=== PATIENT | female | born 1955 | race African-American/Black ===

== ENCOUNTER 2023-12-11 23:46 | Inpatient (IN) | payer BC, MEDICAID ==
[~2023-12-11] VITALS: Ht 161.3 cm; Wt 48.5 kg
[~2023-12-11 23:46] MED LIST: ALBU18HF2 IH; ATOR20TA PO; FLUT1DIS3 INH; FURO-151 MT; IPRA3AMP9 NEB; METFORMIN; P20 MT; POTA-202 MT
[2023-12-11 23:50] VITALS: RESP 18
[2023-12-12] VITALS (7 sets, daily range): RESP 16–31
[2023-12-12] MEDS: MAGNESIUM 2 G PREMIX 50 ML IV ONE (00:30)
[2023-12-12 00:31] LABS: BASOPHILS % 0.7 % (0.0-2.0); EOSINOPHILS % 5.7 % (0.0-5.0); HEMATOCRIT. 31.3 % (36.0-48.0); HEMOGLOBIN. 9.6 g/dL (12.0-16.0); LYMPHOCYTES % 41.6 % (20.0-50.0); MEAN CORPUSCULAR HGB CONC 30.5 g/dL (31.0-37.0); MEAN CORPUSCULAR VOLUME 88.6 fL (81.0-99.0); MEAN PLATELET VOLUME 8.6 fl (7.4-10.4); MONOCYTES % 5.1 % (2.0-8.0); NEUTROPHILS % 46.9 % (40.0-76.0); PLATELET 419 x1000/uL (130-400); RED BLOOD CELL COUNT 3.54 mill/uL (4.2-5.4); RED CELL DISTRIBUTION WIDTH 17.8 % (11.6-14.6); WHITE BLOOD COUNT 10.8 x1000/uL (4.5-11.0)
[2023-12-12] MEDS: ONDANSETRON HCL 4MG/2ML INJ IV STA (00:31)
[2023-12-12] MEDS: METHYLPREDNISOLONE SOD SUCC 125MG/2ML (ACT-O-VIAL) IV STA (00:31)
[2023-12-12 00:45] LABS: ALANINE AMINOTRANSFERASE 40 IU/L (10-49); ALBUMIN 3.8 g/dL (3.2-4.8); ASPARTATE AMINOTRANSFERASE 95 IU/L (<34); BILIRUBIN TOTAL 0.2 mg/dL (0.1-1.0); CALCIUM 7.6 mg/dL (8.7-10.4); CARBON DIOXIDE 17 mEq/L (21-32); CHLORIDE 112 mEq/L (98-107); CREATININE 1.4 mg/dL (0.6-1.0); GLUCOSE 219 mg/dL (70-105); POTASSIUM 3.8 mEq/L (3.5-5.1); PROTEIN TOTAL 5.8 g/dL (6.0-8.3); SODIUM 142 mEq/L (136-145); TROPONIN I HIGH SENSITIVITY 17 ng/L (3.0-34); UREA NITROGEN BLOOD 18 mg/dL (9-23)
[2023-12-12] MEDS: ALBUTEROL (0.083%) 2.5MG/3ML NEB HHN SCH (00:52)
[2023-12-12] MEDS: IPRATROPIUM BROMIDE (0.02%) 0.5MG/2.5ML NEB HHN STA (00:52)
[2023-12-12 00:57] LABS: LACTIC ACID 5.6 mmol/L (0.4-2.0)
[2023-12-12 01:00] LABS: BG BASE EXCESS -7.6 mmol/L (-2.0-2.0); BG CARBOXYHEMOGLOBIN 2.5 % (0.5-1.5); BG DEOXYHEMOGLOBIN 7.7 % (0.0-5.0); BG FRACTION INSPIRED OXYGEN 50; BG HCO3 ACT 19.3 mmol/L (22.0-26.0); BG METHEMOGLOBIN 0.2 % (0.0-1.5); BG OXYGEN SATURATION 92.1 % (92.0-98.5); BG OXYHEMOGLOBIN 89.6 % (94.0-97.0); BG PCO2 44.4 mmHg (35.0-45.0); BG PH 7.255 (7.350-7.450); BG SAMPLE SITE RIGHT BRACHIAL; BG TOTAL HEMOGLOBIN 11.3 g/dL (12.0-18.0); BG VENT MODE MASK - BIPAP
[2023-12-12] MEDS: CEFTRIAXONE 1GM/50ML 50 ML IV NR (03:18)
[2023-12-12] MEDS: SODIUM CHLORIDE 0.9% 1000ML BAG (SEPSIS BOLUS) IV NR (03:19)
[2023-12-12] MEDS: AZITHROMYCIN 500MG/250ML 250 ML IV NR (04:15)
[2023-12-12] MEDS: IOHEXOL-350 100 ML BOTTLE ONE (14:47)
[2023-12-12] MEDS: FUROSEMIDE 40MG/4ML VIAL IVP SCH (16:39)
[2023-12-12] MEDS: LORATADINE 10MG TABLET PO SCH (16:52)
[2023-12-12] MEDS: MONTELUKAST SODIUM 10MG TABLET PO SCH (17:00)
[2023-12-12] MEDS ORDERED: IPRATROPIUM/ALBUTEROL 0.5-3(2.5)MG/3ML NEB HHN SCH (18:00)
[2023-12-12] MEDS: METHYLPREDNISOLONE SOD SUCC 40MG/ML (ACT-O-VIAL) IV SCH (21:38)
[2023-12-13 01:00] VITALS: BP 146/51; PULSE 88; RESP 17; TEMP 97.6
[2023-12-13] MEDS ORDERED: CEFTRIAXONE 1GM/50ML 50 ML IV SCH (03:00)
[2023-12-13] MEDS ORDERED: AZITHROMYCIN 500MG/250ML 250 ML IV SCH (04:00)
[2023-12-13 05:48] LABS: HEMATOCRIT. 25.8 % (36.0-48.0); HEMOGLOBIN. 8.4 g/dL (12.0-16.0); MEAN CORPUSCULAR HEMOGLOBIN 26.5 pg (28.0-32.0); MEAN CORPUSCULAR HGB CONC 32.4 g/dL (31.0-37.0); MEAN CORPUSCULAR VOLUME 81.6 fL (81.0-99.0); MEAN PLATELET VOLUME 8.1 fl (7.4-10.4); PLATELET 307 x1000/uL (130-400); RED BLOOD CELL COUNT 3.17 mill/uL (4.2-5.4); RED CELL DISTRIBUTION WIDTH 16.8 % (11.6-14.6); WHITE BLOOD COUNT 8.2 x1000/uL (4.5-11.0)
[2023-12-13 06:04] LABS: CALCIUM 8.1 mg/dL (8.7-10.4); CREATININE 1.1 mg/dL (0.6-1.0); POTASSIUM 4.3 mEq/L (3.5-5.1)
[2023-12-13 06:41] LABS: DIFFERENTIAL COMMENT 1
[2023-12-13 07:32] LABS: HEPATITIS B SURFACE ANTIGEN NEGATIVE (Negative); HEPATITIS C AB NON REACTIVE (Neg) (Negative)
[2023-12-13 08:00] VITALS: BP 135/61; PULSE 84; RESP 18; TEMP 97.5
[2023-12-13] MEDS: CEFTRIAXONE 1GM/50ML 50 ML IV SCH (09:22)
[2023-12-13] MEDS: AZITHROMYCIN 500MG/250ML 250 ML IV SCH (09:23)
[2023-12-13 12:00] VITALS: BP 130/74; PULSE 85; RESP 18; TEMP 97.7
[2023-12-13 15:22] LABS: HYPOCHROMASIA 1+; PLATELET ESTIMATE NORMAL
[2023-12-13 16:00] VITALS: BP 139/56; PULSE 80; RESP 20; TEMP 97.4
[2023-12-13 20:00] VITALS: BP 110/58; PULSE 85; RESP 19; TEMP 100.2
[2023-12-14] VITALS: BP 108/61; PULSE 74; RESP 19; TEMP 99.7
[2023-12-14 04:00] VITALS: BP 118/79; PULSE 87; RESP 19; TEMP 99.1
[2023-12-14 08:00] VITALS: BP 116/63; PULSE 70; RESP 18; TEMP 98.4
[2023-12-14 12:00] VITALS: BP 120/78; PULSE 80; RESP 18; TEMP 98.1
[2023-12-14] MEDS ORDERED: P20 MT (13:13)
[2023-12-14] MEDS ORDERED: LEVO750T68 MT (13:13)
[2023-12-14] MEDS ORDERED: FLUT1DIS3 INH (13:13)
[2023-12-14] MEDS ORDERED: FURO-151 MT (13:13)
[2023-12-14 13:55] VITALS: BP 120/78; PULSE 80; TEMP 98.2; O2SAT 98
== END 2023-12-14 14:30 | disposition home or self-care (01) | DRG 193 ==
LOC: ER 12-12 → 7WST 12-12 03:58 → EDBEDREQSVC 12-12 23:23
PROVIDERS: ADMIT Internal Medicine; ATTEND Internal Medicine
PROC: 5A09357 Assistance with Respiratory Ventilation, Less than 24 Consecutive Hours, Continuous Positive Airway Pressure (ICD-10-PCS; principal; 2023-12-11)
DX: J18.9 Pneumonia, unspecified organism (principal); J96.01 Acute respiratory failure with hypoxia; E87.20 Acidosis, unspecified; J44.0 Chronic obstructive pulmonary disease with (acute) lower respiratory infection; J44.1 Chronic obstructive pulmonary disease with (acute) exacerbation; I24.89 Other forms of acute ischemic heart disease; I11.0 Hypertensive heart disease with heart failure; D72.10 Eosinophilia, unspecified; Z20.822 Contact with and (suspected) exposure to COVID-19; I25.10 Atherosclerotic heart disease of native coronary artery without angina pectoris; E11.9 Type 2 diabetes mellitus without complications; I50.9 Heart failure, unspecified; Z87.891 Personal history of nicotine dependence; Z95.5 Presence of coronary angioplasty implant and graft
CPT/HCPCS: 36415; 36600; 71045; 71275; 80048; 80053; 82375; 82805; 83605; 83880; 84484; 85025; 85379; 86705; 87340; 87426; 87804; 94640; 94660; 99291; J0456; J0696; J1940; J2405; J2920; J2930; J3475; Q9967

== ENCOUNTER 2024-09-13 00:15 | Emergency (ER) | payer BC, MEDICAID ==
[~2024-09-13] VITALS: Ht 165.1 cm; Wt 65.0 kg
[~2024-09-13 00:15] MED LIST changes: +LEVO750T68 MT
[2024-09-13 00:25] VITALS: O2SAT 98
[2024-09-13] MEDS ORDERED: ALBUTEROL (0.083%) 2.5MG/3ML NEB HHN STA (00:51)
[2024-09-13] MEDS ORDERED: IPRATROPIUM BROMIDE (0.02%) 0.5MG/2.5ML NEB HHN STA (00:51)
[2024-09-13 01:14] LABS: BASOPHILS % 0.2 % (0.0-2.0); DIFFERENTIAL COMMENT 0; HEMATOCRIT. 35.7 % (36.0-48.0); HEMOGLOBIN. 10.9 g/dL (12.0-16.0); LYMPHOCYTES % 14.5 % (20.0-50.0); MEAN CORPUSCULAR HEMOGLOBIN 22.9 pg (28.0-32.0); MEAN CORPUSCULAR HGB CONC 30.5 g/dL (31.0-37.0); MEAN CORPUSCULAR VOLUME 75.1 fL (81.0-99.0); MEAN PLATELET VOLUME 9.3 fl (7.4-10.4); MONOCYTES % 9.3 % (2.0-8.0); PLATELET 269 x1000/uL (130-400); RED BLOOD CELL COUNT 4.76 mill/uL (4.2-5.4); RED CELL DISTRIBUTION WIDTH 20.4 % (11.6-14.6); WHITE BLOOD COUNT 19.7 x1000/uL (4.5-11.0)
[2024-09-13 01:29] LABS: CHLORIDE 100 mEq/L (98-107); SODIUM 134 mEq/L (136-145)
[2024-09-13 01:31] LABS: CALCIUM 10.2 mg/dL (8.7-10.4); CARBON DIOXIDE 22 mEq/L (21-32)
[2024-09-13] MEDS: METHYLPREDNISOLONE SOD SUCC 125MG/2ML (ACT-O-VIAL) IV STA (01:32)
[2024-09-13] MEDS: SODIUM CHLORIDE 0.9% (SEPSIS BOLUS) IV ONE (01:32)
[2024-09-13] MEDS: ASPIRIN 81MG TABLET PO ONE (01:32)
[2024-09-13] MEDS: LEVOFLOXACIN 750MG PREMIX 150 ML IV ONE (01:32)
[2024-09-13 01:36] LABS: GLUCOSE 149 mg/dL (70-105); UREA NITROGEN BLOOD 27 mg/dL (9-23)
[2024-09-13 01:38] LABS: ALANINE AMINOTRANSFERASE 23 IU/L (10-49); ALBUMIN 4.6 g/dL (3.2-4.8); ASPARTATE AMINOTRANSFERASE 49 IU/L (<34); BILIRUBIN TOTAL 0.3 mg/dL (0.1-1.0)
[2024-09-13 01:43] LABS: INR 1.2; PROTHROMBIN TIME 13.4 sec (9.6-11.0)
[2024-09-13 02:12] LABS: BILIRUBIN DIRECT < 0.1 mg/dL (<=3.0); CREATININE 1.7 mg/dL (0.6-1.0); TROPONIN I HIGH SENSITIVITY 50 ng/L (3.0-34)
[2024-09-13 02:13] LABS: POTASSIUM 2.8 mEq/L (3.5-5.1)
[2024-09-13 02:21] LABS: LACTIC ACID 3.6 mmol/L (0.4-2.0)
[2024-09-13] MEDS ORDERED: POTASSIUM CHLORIDE 20MEQ/PACKET PO ONE (03:00)
[2024-09-13 03:10] VITALS: BP 150/96; PULSE 93; RESP 22; O2SAT 100
== END 2024-09-13 07:00 ==
LOC: ER 00:15 → EDBEDREQ 03:32 → CANBEDREQ 04:00 → ER 07:00
DX: A41.9 Sepsis, unspecified organism (principal); R06.02 Shortness of breath; J44.1 Chronic obstructive pulmonary disease with (acute) exacerbation; J44.0 Chronic obstructive pulmonary disease with (acute) lower respiratory infection; J18.9 Pneumonia, unspecified organism; R65.21 Severe sepsis with septic shock; E87.6 Hypokalemia; I11.0 Hypertensive heart disease with heart failure; I50.9 Heart failure, unspecified; Z79.899 Other long term (current) drug therapy; Z79.51 Long term (current) use of inhaled steroids; Z20.822 Contact with and (suspected) exposure to COVID-19
CPT/HCPCS: 99285; 31500; 96365; 71045; 96375; 87426; 80076; 80048; 82962; 83880; 83605; 85025; 85610; 85730; 87040; 84484; 87804 ×2; 36415; 84145; 93005; J2919; J1956; J7030